=== PATIENT | female | born 1980 | race Native Hawaiian/Other Pacific Islander ===

== ENCOUNTER 2018-07-02 08:10 | Outpatient (CLI) | payer OTHER | END 2018-07-02 19:10 | disposition home or self-care (01) | LOC: LABW 08:10 | DX: L92.0 Granuloma annulare (principal) | CPT/HCPCS: 36415; 82947; 83036 ==

== ENCOUNTER 2018-07-03 10:42 | Outpatient (CLI) | payer OTHER | END 2018-07-03 19:46 | disposition home or self-care (01) | LOC: MAMMO 10:42 | DX: N63.20 Unspecified lump in the left breast, unspecified quadrant (principal); N63.10 Unspecified lump in the right breast, unspecified quadrant ==

== ENCOUNTER 2018-08-18 08:11 | Outpatient (CLI) | payer OTHER | END 2018-08-18 08:28 | disposition short-term general hospital (02) | LOC: AMB 08:11 | DX: R53.1 Weakness (principal) | CPT/HCPCS: A0425; A0427 ==

== ENCOUNTER 2018-08-18 08:30 | Emergency (ER) | payer OTHER ==
[~2018-08-18] VITALS: Ht 175.3 cm; Wt 145.2 kg
[2018-08-18 08:33] VITALS: TEMP 97.8
[2018-08-18 09:20] LABS: PLATELET COUNT 310 K/uL (152-353); POTASSIUM 4.1 mmol/L (3.6-5.2)
[2018-08-18 09:34] LABS: PARTIAL THROMBOPLASTIN TIME 28.1 SECONDS (24.5-33.6)
[2018-08-18 11:19] VITALS: BP 121/74
== END 2018-08-18 11:20 | disposition home or self-care (01) ==
LOC: ED 08:30
PROVIDERS: Family Medicine
DX: J01.80 Other acute sinusitis (principal); G43.809 Other migraine, not intractable, without status migrainosus
CPT/HCPCS: 36415; 80053; 85027; 85610; 85730; 96372; 96374; 99284; J1885; J3030

== ENCOUNTER 2018-09-16 07:53 | Outpatient (CLI) | payer OTHER | END 2018-09-16 19:13 | disposition home or self-care (01) | LOC: LABW 07:53 | DX: E23.7 Disorder of pituitary gland, unspecified (principal); R40.4 Transient alteration of awareness; R20.0 Anesthesia of skin | CPT/HCPCS: 36415; 82565; 84146; 84443; 84520 ==

== ENCOUNTER 2019-05-12 09:53 | Outpatient (CLI) | payer OTHER ==
[2019-05-12 10:25] LABS: PLATELET COUNT 282 K/uL (152-353)
[2019-05-12 10:43] LABS: POTASSIUM 3.9 mmol/L (3.6-5.2)
== END 2019-05-12 23:44 | disposition home or self-care (01) ==
LOC: LABW 09:53
DX: L92.0 Granuloma annulare (principal); L29.9 Pruritus, unspecified; Z51.81 Encounter for therapeutic drug level monitoring
CPT/HCPCS: 36415; 80053; 82955; 85027

== ENCOUNTER 2020-11-21 12:33 | Outpatient (CLI) | payer OTHER ==
[~2020-11-21] VITALS: Ht 170.2 cm; Wt 109.0 kg
[2020-11-21 14:10] LABS: POTASSIUM 4.7 mmol/L (3.6-5.2)
[2020-11-21 15:00] LABS: PLATELET COUNT 223 K/uL (152-353)
[2020-11-21 16:20] VITALS: BP 124/65; TEMP 98.2
== END 2020-11-21 16:20 | disposition home or self-care (01) ==
LOC: INF 12:33
PROVIDERS: ATTEND Family Medicine
DX: U07.1 COVID-19 (principal)
CPT/HCPCS: 36591; 80053; 85027; 96365; Q0239

== ENCOUNTER 2023-07-21 07:51 | Outpatient (CLI) | payer OTHER | END 2023-07-21 19:38 | disposition home or self-care (01) | LOC: NM 07:51 | PROVIDERS: ATTEND Nurse Practitioner Family | DX: E21.3 Hyperparathyroidism, unspecified (principal) | CPT/HCPCS: A9500 ==

== ENCOUNTER 2023-09-03 08:35 | Outpatient (CLI) | payer OTHER | END 2023-09-03 19:19 | disposition home or self-care (01) | LOC: US 08:35 | PROVIDERS: ATTEND Nurse Practitioner Family | DX: G43.909 Migraine, unspecified, not intractable, without status migrainosus (principal) ==